=== PATIENT | male | born 1970 | race African-American/Black ===

== ENCOUNTER 2017-06-25 06:54 | Emergency (ER) | payer OTHER ==
[~2017-06-25] VITALS: Ht 172.7 cm; Wt 104.3 kg
[~2017-06-25 06:54] MED LIST: IBUPROFEN 800800 MG PO; NOHOMEMEDICATIONS; NORFLEX100 MG PO; TRAMADOL 50 MG50 MG PO
[2017-06-25] MEDS ORDERED: NORCO 5-325 TA1 EACH PO (07:59)
[2017-06-25 08:02] VITALS: BP 152/92
[2017-12-07] MEDS ORDERED: AMBIEN 5 MG TABL5 M1 PO (19:01)
[2017-12-07] MEDS ORDERED: DIPHENHIST50 MG PO (21:57)
[2017-12-11] MEDS ORDERED: CARVEDILOL12.5 MG PO (12:25)
[2017-12-11] MEDS ORDERED: LISINOPRIL10 MG PO (12:25)
[2017-12-11] MEDS ORDERED: SPIRONOLACTONE25 M1 PO (12:25)
[2017-12-11] MEDS ORDERED: MAG6464 MG PO (12:26)
== END 2017-06-25 08:17 | disposition home or self-care (01) ==
LOC: ER 06:54
DX: T65.891A Toxic effect of other specified substances, accidental (unintentional), initial encounter (principal); T20.42XA Corrosion of unspecified degree of lip(s), initial encounter; T20.46XA Corrosion of unspecified degree of forehead and cheek, initial encounter; T32.0 Corrosions involving less than 10% of body surface; V89.2XXA Person injured in unspecified motor-vehicle accident, traffic, initial encounter; Y93.89 Activity, other specified; Y92.89 Other specified places as the place of occurrence of the external cause; Y99.8 Other external cause status

== ENCOUNTER 2017-12-24 23:35 | Emergency (ER) | payer OTHER ==
[~2017-12-24] VITALS: Ht 172.7 cm; Wt 86.2 kg
--- NOTE | ~2017-12-24 | EKG ---
[place] [address] [facility] [place] [address] ELECTROCARDIOGRAM REPORT Name: RADAMES GANDARA Room #: DEP Conner#: [id number] Admission: 12/24/17 Attend Phys: Discharge: 12/25/17 Date of : 68 Report #: [id number] THIS REPORT FOR: //name// [facility] ED Test Date: 2017-12-24 Test Time: 23:38:53 Pat Name: RADAMES GANDARA Department: Room: Gender: M [employer]: [place] : 1970 Requested By: Suman Cohen Order Number: [id number] MD: Geoff Garcia Measurements Intervals [place] Rate: 74 P: 42 TN: 194 QRS: 37 QRSD: 168 T: -38 QT: 457 QTc: 507 Interpretive Statements Sinus rhythm Probable left atrial enlargement IVCD, consider atypical LBBB Compared to ECG 12/08/2017 06:10:38 No significant changes Electronically Signed On 12-25-2017 17:41:54 CDT by Geoff Garcia [email or web address] <ELECTRONICALLY SIGNED> By: Geoff Garcia MD 12/25/17 1741 D: [id number] Geoff Garcia MD /TERRY
[~2017-12-24 23:35] MED LIST changes: +AMBIEN 5 MG TABL5 M1 PO; +CARVEDILOL12.5 MG PO; +DIPHENHIST50 MG PO; +LISINOPRIL10 MG PO; +MAG6464 MG PO; +NORCO 5-325 TA1 EACH PO; +SPIRONOLACTONE25 M1 PO
[2017-12-25 00:19] LABS: ABSOLUTE NEUTROPHILS 4.2 thou/uL (1.4-8.2); BASOPHILS 1.1 % (0.0-2.0); EOSINOPHILS 1.3 % (0.0-3.0); HEMATOCRIT 37.5 % (42.0-52.0); LYMPHOCYTES 20.7 % (24.0-44.0); MCH 36.5 pg (26.0-34.0); MCHC 34.7 g/dL (28.0-37.0); MCV 105.3 fL (80.0-100.0); MONOCYTES 4.8 % (1.0-8.0); PLATELET COUNT 199 thou/uL (150-400); POLYS 72.1 % (36.0-66.0); RBC 3.56 mil/uL (4.50-6.00); RDW 15.6 % (10.5-14.5); WBC 5.8 thou/uL (4.0-11.0)
[2017-12-25 00:29] LABS: ANION GAP 10 mmol/L (7-16); BUN 11 mg/dL (7-18); CHLORIDE 103 mmol/L (98-107); CO2 25 mmol/L (21-32); CREATININE 0.9 mg/dL (0.7-1.3); GLUCOSE 90 mg/dL (74-106); POTASSIUM 3.7 mmol/L (3.5-5.1); SODIUM 138 mmol/L (136-145)
[2017-12-25 00:38] LABS: ALBUMIN 3.4 g/dL (3.4-5.0); SGOT 61 U/L (15-37); SGPT 36 U/L (30-65); TOTAL BILIRUBIN 2.1 mg/dL (<0.1-1.0); TOTAL PROTEIN 7.1 g/dL (6.4-8.2); TROPONIN-I <0.06 ng/mL (<0.06)
== END 2017-12-25 01:10 | disposition home or self-care (01) ==
LOC: ER 23:35
PROVIDERS: Emergency Medicine
DX: R06.02 Shortness of breath (principal); R07.89 Other chest pain; I11.0 Hypertensive heart disease with heart failure; I50.9 Heart failure, unspecified; F17.210 Nicotine dependence, cigarettes, uncomplicated